=== PATIENT | male | born 1965 | race Caucasian/White ===

== ENCOUNTER 2024-08-18 13:50 | Emergency (ER) | payer OTHER ==
[~2024-08-18] VITALS: Ht 182.9 cm; Wt 93.0 kg
[2024-08-18 13:56] VITALS: BP 139/69; TEMP 98.4; O2SAT 100
== END 2024-08-18 14:09 | disposition home or self-care (01) ==
LOC: ER 13:57
DX: M70.21 Olecranon bursitis, right elbow (principal); Z98.890 Other specified postprocedural states